=== PATIENT | male | born 1985 | race Caucasian/White ===

== ENCOUNTER 2021-01-02 22:45 | Emergency (ER) | payer SELFPAY ==
[~2021-01-02] VITALS: Ht 177.8 cm; Wt 103.9 kg
[2021-01-02 22:47] VITALS: BP 151/111
[2021-01-02] MEDS ORDERED: SULFAMETH./TRIMETHOPRIM DS 800MG/160MG TABLET ONE ×2 (22:59→23:03)
[2021-01-02] MEDS ORDERED: SULFAMETH./TRIMETHOPRIM DS 800MG/160MG TABLET PO ONE (23:00)
== END 2021-01-02 23:10 | disposition home or self-care (01) ==
LOC: ED 23:08
DX: L03.116 Cellulitis of left lower limb (principal); Z88.0 Allergy status to penicillin
CPT/HCPCS: 99283